=== PATIENT | female | born 1995 | race Caucasian/White ===

== ENCOUNTER → 2024-12-14 | Outpatient (CLI) | payer BC ==
[2024-12-15 00:36] LABS: Bilirubin,Urine Negative (Negative); Blood,Urine Trace (Negative); Color,Urine Colorless; Glucose,Urine (UA) Negative (Negative); Ketones,Urine Negative (Negative); Leukocyte Esterase,Urine Negative (Negative); Nitrite,Urine Negative (Negative); PH, Urine 6.0 (5.0-8.0); Protein,Urine Negative (Negative); RBC,Urine <1 /hpf (0-5); Specific Gravity,Urine 1.007 (1.001-1.035); Squamous Epithelial Cell,Urine <1 /hpf (0-4); Urobilinogen,Urine <2.0 mg/dL (<2.0); WBC,Urine 1 /hpf (0-5)
[2024-12-15 02:33] VITALS: BP 121/76; PULSE 73; RESP 16; TEMP 97.2
--- NOTE | 2024-12-26 09:27 | P.MSEPDOC ---
Presenting Problems - Arrival Data Date of Arrival on Unit: 12/14/24 Time of Arrival on Unit: 22:38 Mode of Transport: Ambulatory - Complaint OB-Reason for Admission/Chief Complaint: Possible Onset of Labor Comment: Pt presents to triage with complaints of contractions and vaginal pressure all day. States contractions are 3-10 minutes apart, rated 5/10. Pt states that there is "a lot of pressure" and states seeing some "bloody show" for a few days when she wipes. Medical History - Information : 3 Para: 2 Term: 1 : 1 Abortions: Spontaneous or Elective: 0 Number of Living Children: 2 - Gestational Age Gestational Age by [place] (wks/days): 40 Weeks and 0 Days Review of Systems - Review of Systems Constitutional: No problems Breast: No problems ENT: No problems Cardiovascular: No problems Respiratory: No problems Gastrointestinal: No problems Genitourinary: No problems Musculoskeletal: No problems Neurological: No problems Skin: No problems Vital Signs - Temperature Temperature: 97.2 F Temperature Source: Temporal Artery Scan - Pulse Right Brachial Pulse Rate: 73 Pulse Assessment Method: Automatic Cuff - Respirations Respiratory Rate: 16 Oxygen Delivery Method: Room Air O2 Sat by Pulse Oximetry: 100 - Blood Pressure Right Arm Blood Pressure: 121/76 Blood Pressure Mean: 91 Blood Pressure Source: Automatic Cuff Medical Screen Scoring - Cervical Exam Dilation (cm): 3 Effacement (%): 50 Station: -2 Membranes: Intact - Uterine Contractions Frequency From (mins): 2 Frequency To (mins): 5 Duration From (seconds): 40 Duration To (seconds): 70 Intensity: Mild Resting: Soft to palpation - Assessment - Baby A Baseline FHR: 120 Heart Rate - NICHD Category: Category I (Normal) NST: Reactive Physician Notification - Physician Notified Physician Notified Date: 12/15/24 Physician Notified Time: 00:45 Physician: Finn Shin Order Received: Yes - Notification Comment Comment: 0045-Dr. Shin called with report on patient that presents for contractions, vaginal pressure, and report of bloody show. Patient has been in triage for 2 hours now. Cervical exam remains 3/50/-2, contractions 2-4 minutes apart. Patient state pain is 5/10 and increasing. Category 1 heart tones. Patient lives in [place]. Patient to stay in triage and continue to monitor and recheck cervix in a hour. 0200- Dr. Pizarro called with update. Patient has failed to make cervical change during extended observation in triage. Pain rated the same. Contractions 2-5 minutes apart. Category 1 FHT. Orders received for discharge, keep follow up appointment today with Dr. Schuler and educate on when to return to triage. Maternal Triage Index - Stat/Priority 1 Stat Priority 1: No - Urgent/Priority 2 Urgent Priority 2: No - Prompt/Priority 3 Prompt Priority 3: No - Non-Urgent/Priority 4 Non-Urgent Priority 4: Yes Criteria Met for Priority 4: 40 0/7 contractions Disposition - Disposition OB Disposition: Discharge to home Discharge Date: 12/15/24 Discharge Time: 02:09 I agree with the RN Medical Screening Exam: Yes Physician's MSE Comment: I have neither seen nor examined the patient. Case reviewed; plan agreed upon as documented in EMR&OBIX.: Yes Diagnosis: RELATED CONDITIONS, UNSPECIFIED, THIRD TRIMESTER
== END ==
LOC: FBPOP 22:38
PROVIDERS: ATTEND Obstetrics & Gynecology
DX: O26.893 Other specified pregnancy related conditions, third trimester (principal); Z3A.40 40 weeks gestation of pregnancy
CPT/HCPCS: 59025; 81001; 99213

== ENCOUNTER 2024-12-18 20:32 | Inpatient (IN) | payer BC ==
[2024-12-18] MEDS ORDERED: OXYTOCIN 10 UNIT/ML 1 ML VIAL IM PRN (22:03)
[2024-12-18] MEDS ORDERED: METHYLERGONOVINE 0.2 MG/ML 1 ML AMP IM PRN (22:03)
[2024-12-18] MEDS ORDERED: CARBOPROST TROMETHAMINE 250 MCG/ML 1 ML AMP IM PRN (22:03)
[2024-12-18] MEDS ORDERED: LIDOCAINE 0.5% (PF) 5 MG/ML (50 ML SDV) SQ PRN (22:03)
[2024-12-18] MEDS ORDERED: TERBUTALINE 1 MG/ML VIAL SQ PRN (22:03)
[2024-12-18] MEDS ORDERED: TRANEXAMIC 1,000 MG/100ML-NACL 1,000 MG in EMPTY BAG 1 BAG IV PRN (22:03)
[2024-12-18 22:22] LABS: Basophils # (A) 0.05 10*3/uL (0.00-0.10); Basophils % (A) 0.3 %; Eosinophils # (A) 0.03 10*3/uL (0.04-0.35); Eosinophils % (A) 0.2 %; HCT 32.6 % (37.2-46.3); HGB 10.7 g/dL (12.0-15.0); Lymphocytes # (A) 3.40 10*3/uL (0.90-5.00); Lymphocytes % (A) 22.7 %; MCH 26.6 pg (27.0-32.0); MCHC 32.8 g/dL (32.0-37.0); MCV 81.1 fL (80.0-97.0); Monocytes # (A) 1.01 10*3/uL (0.20-1.00); Monocytes % (A) 6.7 %; Neutrophils # (A) 10.30 10*3/uL (1.80-7.70); Neutrophils % (A) 68.9 %; Platelet Count 213 10*3/uL (140-440); RBC 4.02 10*6/uL (4.10-5.20); RDW 14.1 % (11.5-14.5); WBC 14.97 10*3/uL (4.50-10.00)
[2024-12-18] MEDS: AMPICILLIN 2,000 MG in SODIUM CHLORIDE 0.9% 100 ML IVPB STA (22:29)
[2024-12-18] MEDS: LACTATED RINGERS 1,000 ML IV SCH (22:31)
[2024-12-19] MEDS: AMPICILLIN 1,000 MG in SODIUM CHLORIDE 0.9% 50 ML IVPB SCH (02:33)
[2024-12-19] MEDS ORDERED: fentaNYL (PF) 50 MCG/ML 5 ML AMP ONE (07:47)
[2024-12-19] MEDS ORDERED: SODIUM CHLORIDE 0.9% 250 ML BAG ONE (07:47)
[2024-12-19] MEDS ORDERED: ROPIVACAINE 5 MG/ML 30 ML VIAL ONE (07:47)
[2024-12-19] MEDS: OXYTOCIN 30 UNITS/500 ML NS 30 UNIT in SALINE 1 500ML.BAG IV SCH (09:00)
[2024-12-19] MEDS: ONDANSETRON 4 MG/2 ML VIAL IVP STA (09:10)
--- NOTE | 2024-12-19 09:10 | P.HPOB ---
History of Present Illness H&P Date: 12/19/24 Chief Complaint: IUP at 40-3/7 weeks, labor This is a 29-year-old 3 para 1102 at 40-3/7 weeks that presents to labor and delivery with complaints of regular painful contractions. Patient states she began lugii through the night and presented to labor and delivery. Patient did make cervical change in OB triage therefore was admitted to labor and delivery. Estimated due date of 12/15 based on last menstrual period consistent with 11-week ultrasound. On blood work this patient is a blood type of A+, rubella status immune, RPR nonreactive, hepatitis B surface antigen negative, HIV negative, hepatitis C antibody negative hepatitis B surface antigen negative, group beta strep culture positive on 11/16. Review of Systems Constitutional: Denies chills, Denies fatigue, Denies fever Ears, nose, mouth and throat: Denies headache Cardiovascular: Reports leg edema Respiratory: Denies dyspnea Gastrointestinal: Denies constipation, Denies diarrhea, Denies nausea, Denies vomiting Genitourinary: Reports Past Medical History Past Medical History: Pneumonia History of Any Multi-Drug Resistant Organisms: None Reported Past Surgical History: No Surgical Hx Reported Additional Past Surgical History / Comment(s): wisdom teeth removal Past Anesthesia/Blood Transfusion Reactions: No Reported Reaction Past Psychological History: No Psychological Hx Reported Smoking Status: Never smoker Past Alcohol Use History: None Reported Past Drug Use History: None Reported - Past Family History Mother Family Medical History: No Reported History Medications and Allergies Home Medications Medication Instructions Recorded Confirmed Type Pnv,Calcium 72/Iron/Folic Acid 1 tab PO DAILY 05/28/15 12/18/24 History [ Plus Tablet] Omeprazole [PriLOSEC] 10 mg PO DAILY 12/14/24 12/18/24 History Allergies Allergy/AdvReac Type Severity Reaction Status Date / Time No Known Allergies Allergy Verified 11/16/24 11:25 Exam Osteopathic Statement: *. No significant issues noted on an osteopathic structural exam other than those noted in the History and Physical/Consult. Vital Signs Temp Pulse Resp BP Pulse Ox 12/18/24 22:02 97.7 F 78 16 119/67 100 12/18/24 20:39 97.8 F 77 16 136/86 100 Intake and Output 12/18/24 12/19/24 12/19/24 22:59 06:59 14:59 Other: Weight 90.718 kg Targeted physical exam is performed this date General Is a well-nourished well-developed female, breathing appears nonlabored, abdomen is gravid, on cervical exam she is 6/70/-2 station vertex presentation, amniotomy performed and clear fluid was obtained. heart tones noted to be category 1 and she is luigi every 2 to 4 minutes. Results Result Diagrams: 12/18/24 22:10 Abnormal Lab Results - Last 24 Hours (Table) 12/18/24 Range/Units 22:10 WBC 14.97 H (4.50-10.00) 10*3/uL RBC 4.02 L (4.10-5.20) 10*6/uL Hgb 10.7 L (12.0-15.0) g/dL Hct 32.6 L (37.2-46.3) % MCH 26.6 L (27.0-32.0) pg Immature Gran # 0.18 H (0.00-0.04) 10*3/uL Neutrophils # 10.30 H (1.80-7.70) 10*3/uL Monocytes # 1.01 H (0.20-1.00) 10*3/uL Eosinophils # 0.03 L (0.04-0.35) 10*3/uL Assessment and Plan (1) Post-dates Current Visit: Yes Status: Acute Code(s): O48.0 - POST-TERM SNOMED Code(s): 42113810 (2) Active labor at term Current Visit: No Status: Acute Code(s): YAW7676 - SNOMED Code(s): 35160953 (3) Group B Streptococcus carrier, antepartum Current Visit: No Status: Acute Code(s): O99.820 - STREPTOCOCCUS B CARRIER STATE COMPLICATING SNOMED Code(s): 8625716837322 Plan: Admit to labor and delivery GBS prophylaxis Epidural as patient desires Anticipate spontaneous vaginal delivery
[2024-12-19] MEDS ORDERED: BENZOCAINE/MENTHOL SPRAY 1 GM/SPRAY AEROSOL TOPICAL PRN (15:01)
[2024-12-19] MEDS ORDERED: ZOLPIDEM 5 MG TAB PO PRN (15:01)
[2024-12-19] MEDS ORDERED: LANOLIN CREAM 1 GM TUBE TOPICAL PRN (15:01)
[2024-12-19] MEDS ORDERED: HYDROCORTISONE 2.5% RECTAL CREAM 30 GM TUBE RECTAL PRN (15:01)
[2024-12-19] MEDS ORDERED: diphenhydrAMINE 50 MG/ML 1 ML VIAL IVP PRN ×2 (15:01)
[2024-12-19] MEDS ORDERED: SIMETHICONE 80 MG CHEWABLE PO PRN (15:01)
[2024-12-19] MEDS ORDERED: diphenhydrAMINE 25 MG CAP PO PRN (15:01)
--- NOTE | 2024-12-19 15:05 | P.PROBDLV ---
Vaginal Delivery Note - . Vaginal Delivery Note: Date of service 12/19/2024 Findings: Viable male infant delivered at 1446, weight of 8 pounds 6.7 ounces, Apgars of 8 and 9 at 1 and 5 minutes respectively 29-year-old 3 para 1-1-0-2 at 40-4/7 weeks presented to labor and delivery in active labor. Patient was admitted and made slow progress through the night. Patient was begun on Pitocin for augmentation of labor and underwent amniotomy. Clear fluid was obtained. Patient had received an epidural prior to this. Patient made good progress toward complete dilation. Once completely dilated she began pushing and with excellent maternal effort had a normal spontaneous vaginal delivery of a viable male at 1446, weight of 8 pounds 6.7 ounces, Apgars of 8 and 9 at 1 and 5 minutes respectively. After 2-minute delay the umbilical cord was doubly clamped and cut. Spontaneous cry was noted at . Placenta was delivered spontaneously intact with three-vessel cord being noted. On inspection the patient's vaginal vault no lacerations were appreciated. All counts were noted correct x 2. Patient and tolerated delivery well Estimated blood loss 200 cc
[2024-12-19] MEDS: ACETAMINOPHEN TAB 500 MG TAB PO SCH (16:00)
[2024-12-19 16:18] VITALS: RESP 16
[2024-12-19] MEDS: ROPIVACAINE 225 MG, fentaNYL (PF). 450 MCG in SODIUM CHLORIDE 0.9% 171 ML EPIDURAL ONE (17:58)
[2024-12-19] MEDS: SENNOSIDES-DOCUSATE SODIUM 1 EACH TAB PO SCH (19:43)
[2024-12-19] MEDS: IBUPROFEN 800 MG TAB PO SCH (19:43)
[2024-12-20 06:52] LABS: Basophils # (A) 0.04 10*3/uL (0.00-0.10); Basophils % (A) 0.3 %; Eosinophils # (A) 0.02 10*3/uL (0.04-0.35); Eosinophils % (A) 0.1 %; HCT 27.2 % (37.2-46.3); Lymphocytes # (A) 2.55 10*3/uL (0.90-5.00); Lymphocytes % (A) 18.4 %; MCH 26.8 pg (27.0-32.0); MCHC 33.1 g/dL (32.0-37.0); MCV 81.0 fL (80.0-97.0); Monocytes # (A) 1.06 10*3/uL (0.20-1.00); Monocytes % (A) 7.7 %; Neutrophils # (A) 10.03 10*3/uL (1.80-7.70); Neutrophils % (A) 72.5 %; Platelet Count 164 10*3/uL (140-440); RBC 3.36 10*6/uL (4.10-5.20); RDW 14.2 % (11.5-14.5); WBC 13.84 10*3/uL (4.50-10.00)
[2024-12-20 06:54] LABS: HGB 9.0 g/dL (12.0-15.0)
--- NOTE | 2024-12-20 08:44 | P.DS ---
Providers Date of admission: 12/18/24 21:52 Expected date of discharge: 12/20/24 Attending physician: Smita Schuler MD Primary care physician: Stated None Hospital Course: 29 year old now PPD#1 s/p without complications. The patient is doing well this morning and had no acute events overnight. She has no complaints this morning. She reports minimal lochia, passing flatus, voiding without difficulty, ambulating, and eating/drinking without nausea or vomiting. doing well at bedside. She denies chest pain, shortness of breathing, fevers, or chills overnight. She denies pain or swelling in the legs. restrictions are reviewed with the patient including pelvic rest for 6 weeks. The patient is encouraged to call the office if she experiences any heavy bleeding, foul-smelling discharge, breast complaints, or any if she has any other concerns. She will follow up in the office with in 6 weeks for exam. All questions are answered. Patient Condition at Discharge: Good Plan - Discharge Summary New Discharge Prescriptions: No Action Pnv,Calcium 72/Iron/Folic Acid [ Plus Tablet] 1 tab PO DAILY Omeprazole [PriLOSEC] 10 mg PO DAILY Discharge Medication List Pnv,Calcium 72/Iron/Folic Acid [ Plus Tablet] 1 tab PO DAILY 05/28/15 [History] Omeprazole [PriLOSEC] 10 mg PO DAILY 12/14/24 [History] Follow up Appointment(s)/Referral(s): Smita Schuler MD [STAFF PHYSICIAN] - 6 Weeks Activity/Diet/Wound Care/Special Instructions: Instructions 1. Do not begin any exercise program for 3 weeks. 2. Do not resume sexual relations for 6 weeks or longer if uncomfortable. 3. You may take tub baths or showers at any time. 4. You may use tampons if desired after 6 weeks. 5. Keep any areas repaired with stitches clean and dry. 6. If you are not nursing, wear a good fitting, supportive bra during the day and limit fluid intake for at least 1 week to prevent breast engorgement. 7. Call the office, , within the next week to make appointment for your 6 week checkup if it has not already been made. 8. Report any of the following occurrences to the doctor promptly: a. Heavy, excessive bleeding b. Chills, fever c. Burning or frequency of urination d. Pain or redness and breasts if nursing e. Increasing pain or swelling of vulva (stitches). In addition to the above instructions, the following additional should be followed: 1. No heavy lifting or straining (exercising) until after 6 week checkup. 2. Keep abdominal incision clean and dry: You may wear a dressing if more comfortable. 3. Make office appointment for 2 weeks after delivery date. Discharge Disposition: HOME SELF-CARE
[2024-12-20 08:48] VITALS: BP 121/76; PULSE 63; TEMP 97.8
== END 2024-12-20 15:45 | disposition home or self-care (01) | DRG 807 ==
LOC: FBPOP 20:32 → 4FBP 21:52
PROVIDERS: ADMIT Obstetrics & Gynecology Obstetrics; ATTEND Obstetrics & Gynecology
PROC: 10E0XZZ Delivery of Products of Conception, External Approach (ICD-10-PCS; principal; 2024-12-19)
PROC: 10907ZC Drainage of Amniotic Fluid, Therapeutic from Products of Conception, Via Natural or Artificial Opening (ICD-10-PCS; 2024-12-19)
PROC: 3E033VJ Introduction of Other Hormone into Peripheral Vein, Percutaneous Approach (ICD-10-PCS; 2024-12-19)
DX: O99.824 Streptococcus B carrier state complicating childbirth (principal); Z37.0 Single live birth; O48.0 Post-term pregnancy; Z3A.40 40 weeks gestation of pregnancy; Z87.01 Personal history of pneumonia (recurrent)
CPT/HCPCS: 59025; 85025; 86850; 86900; 86901; 99213